=== PATIENT | female | born 1945 | race Caucasian/White ===

== ENCOUNTER 2023-03-09 11:12 | Outpatient (OUT) | payer MEDICARE, SELFPAY ==
[2023-03-09 14:26] LABS: Estimated Average Glucose 203 mg/dL; Glycohemoglobin A1C 8.7 % (4.5-6.2)
== END 2023-03-09 11:13 ==
LOC: LAB 11:16
PROVIDERS: PCP Family Medicine; Visit Provider Family Medicine
DX: E11.65 Type 2 diabetes mellitus with hyperglycemia (principal)
CPT/HCPCS: 36415; 83036

== ENCOUNTER 2024-06-08 11:36 | Outpatient (OUT) | payer MEDICARE, SELFPAY ==
[2024-06-08 12:17] LABS: Estimated Average Glucose 194 mg/dL; Glycohemoglobin A1C 8.4 % (4.5-6.2)
== END 2024-06-08 11:37 | disposition home or self-care (01) ==
PROVIDERS: PCP Family Medicine; Visit Provider Family Medicine
DX: E11.65 Type 2 diabetes mellitus with hyperglycemia (principal)
CPT/HCPCS: 36415; 83036

== ENCOUNTER 2024-09-05 11:22 | Outpatient (OUT) | payer MEDICARE, SELFPAY ==
--- OUTSIDE RECORDS SUMMARY | 2024-09-05 11:30 | XMS_ITS | CCD ---
Author Organization [facility] Care Team Providers Care Hoist Cylinder Loader Name Role Phone YANNI, DR EUGENIE Concepcion Admitting Unavailable NADERER, DR EUGENIE Concepcion Attending Unavailable NADERER, DR EUGENIE Concepcion Primary Care Unavailable NADERER, DR EUGENIE Concepcion Consulting Unavailable NADERER, DR EUGENIE Concepcion Admitting Unavailable NADERER, DR EUGENIE Concepcion Attending Unavailable NADERER, DR EUGENIE Concepcion Primary Care Unavailable NADERER, DR EUGENIE Concepcion Consulting Unavailable NADERER, EUGENIE Attending Unavailable NADERER, EUGENIE Attending Unavailable NADERER, EUGENIE Attending Unavailable Allergies Allergy Classification Reported Allergen(s) Allergy Type Date of Onset Reaction(s) Facility (1 source) Angiotensin Converting Enzyme (Lanre) Inhibitors Drug allergy (disorder) 07-04-2014 [facility] Repository Problems Problem Classification Problem Date Documented Da te Episodic/Chronic Chronic kidney disease (1 source) Chronic kidney disease; Translations: [CHRONIC KIDNEY DISEASE STAGE 3A] Onset: 08-20-2022 Diabetes mellitus with complications (6 sources) Type 2 diabetes mellitus with hyperglycemia; Translations: [Type 2 diabetes mellitus with diabetic chronic kidney disease] Onset: 02-17-2022 Chronic Disorders of lipid metabolism (1 source) Hyperlipidemia, unspecified; Translations: [HYPERLIPIDEMIA UNSPECIFIED] Onset: 08-20-2022 Chronic Malaise and fatigue (1 source) Other fatigue; Translations: [OTHER FATIGUE] Onset: 08-20-2022 Episodic Other aftercare (4 sources) Other long term care administrator (current) drug therapy; Translations: [OTH CHANNEL TURNER CURRENT DRUG THERAPY] Onset: 08-17-2022 Episodic Results Test Name Value Interpretation Reference Range Facil ity CBC AUTO DIFFon 08-17-2022 BASO # 0.1 103/ul Normal 0.0-0.1 [facility] Comment on above: Performed By: #### C BC #### [facility] [address] [place] [address] Dr. Vianney Monaco Basophils/100 WBC (Bld) 0.9 % Normal 0.2-2.0 [facility] Comment on above: Performed By: #### C BC #### [facility] [address] [place] [address] Dr. Vianney Monaco EO # 0.2 103/ul Normal 0.0-0.7 [facility] Comment on above: Performed By: #### C BC #### [facility] [address] [place] [address] Dr. Vianney Monaco Eosinophils/100 WBC (Bld) 3.1 % Normal 0.9-7.0 [facility] Comment on above: Performed By: #### C BC #### [facility] [address] [place] [address] Dr. Vianney Monaco Erythrocyte distribution width (RBC) [Ratio] 13.2 % Normal 11.0-15.0 [facility] Comment on above: Performed By: #### C BC #### [facility] [address] [place] [address] Dr. Vianney Monaco Hematocrit (Bld) [Volume fraction] 44.3 % Normal 36.0-48.0 [facility] Comment on above: Performed By: #### C BC #### [facility] [address] [place] [address] Dr. Vianney Monaco Hemoglobin (Bld) [Mass/Vol] 15.0 g/dL Normal 12.0-16.0 [facility] Comment on above: Performed By: #### C BC #### [facility] [address] [place] [address] Dr. Vianney Monaco IG # 0.02 10e3/ul Normal 0.00-0.03 [facility] Comment on above: Performed By: #### C BC #### [facility] [address] [place] [address] Dr. Vianney Monaco IG % 0.4 % Normal 0.0-0.5 [facility] Comment on above: Performed By: #### C BC #### [facility] [address] [place] [address] Dr. Vianney Monaco LYMPH # 1.6 103/ul Normal 1.2-3.8 [facility] Comment on above: Performed By: #### C BC #### [facility] [address] [place] [address] Dr. Vianney Monaco Lymphocytes/100 WBC (Bld) 28.2 % Normal 20.5-60.0 [facility] Comment on above: Performed By: #### C BC #### [facility] [address] [place] [address] Dr. Vianney Monaco MANUAL DIFF REQ NO Normal [facility] Comment on above: Performed By: #### C BC #### [facility] [address] [place] [address] Dr. Vianney Monaco MCH (RBC) [Entitic mass] 33.6 pg Normal 26.7-34.0 [facility] Comment on above: Performed By: #### C BC #### [facility] [address] [place] [address] Dr. Vianney Monaco MCHC (RBC) [Mass/Vol] 33.9 g/dL Normal 29.9-35.2 [facility] Comment on above: Performed By: #### C BC #### [facility] [address] [place] [address] Dr. Vianney Monaco MCV (RBC) [Entitic vol] 99.3 fL Critically high 81.0-99.0 [facility] Comment on above: Performed By: #### C BC #### [facility] [address] [place] [address] Dr. Vianney Monaco MONO # 0.4 103/ul Normal 0.3-0.8 [facility] Comment on above: Performed By: #### C BC #### [facility] [address] [place] [address] Dr. Vianney Monaco Monocytes/100 WBC (Bld) 7.6 % Normal 1.7-12.0 [facility] Comment on above: Performed By: #### C BC #### [facility] [address] [place] [address] Dr. Vianney Monaco NEUT # 3.3 103/ul Normal 1.4-6.5 [facility] Comment on above: Performed By: #### C BC #### [facility] [address] [address] [address] Vianney Monaco Neutrophils/100 WBC (Bld) 59.8 % Normal 43.0-75.0 [facility] Comment on above: Performed By: #### C BC #### [facility] [address] [address] [address] Vianney Monaco Platelet mean volume (Bld) [Entitic vol] 10.4 fL Normal 9.5-13.5 [facility] Comment on above: Performed By: #### C BC #### [facility] [address] [address] [address] Vianney Monaco PLT 198 103/ul Normal 150-450 [facility] Comment on above: Performed By: #### C BC #### [facility] [address] [place] [address] Dr. Vianney Monaco RBC 4.46 106/ul Normal 4.20-5.40 [facility] Comment on above: Performed By: #### C BC #### [facility] [address] [address] [address] Vianney Monaco WBC 5.5 103/ul Normal 4.0-11.0 [facility] Comment on above: Performed By: #### C BC #### [facility] [address] [place] [address] Dr. Vianney Monaco GLYCOHEMOGLOBIN A1Con 2021 ADA RECOMMENDATION SEE BELOW Normal [facility] Comment on above: Result Comment: ADA RECOMMENDED LIMIT 4.0 - 6.0 ADA THERAPEUTIC TARGET < 7.0 ACTION SUGGESTED > 7.0 Performed By: #### A 1C #### [facility] [address] [place] [address] Dr. Vianney Monaco Glucose [Mass/Vol] 189 mg/dL Normal [facility] Comment on above: Performed By: #### A 1C #### [facility] [address] [place] [address] Dr. Vianney Monaco HbA1c (Bld) [Mass fraction] 8.2 % Critically high 4.5-6.2 [facility] Comment on above: Performed By: #### A 1C #### [facility] [address] [address] [address] Vianney Monaco LIPID PROFILEon 08-17-2022 CHOL-HDL RATIO NORM SEE BELOW Normal [facility] Comment on above: Result Comment: 3.3 - 4.4 LOW RISK 4.4 - 7.1 AVERAGE RISK 7.1 - 11.0 MODERATE RISK >11.0 HIGH RISK Performed By: #### B MP, TSH, LIPID, LIVER #### [facility] [address] [address] [address] Vianney Monaco Cholesterol [Mass/Vol] 242 mg/dL Critically high <=200 [facility] Comment on above: Performed By: #### B MP, TSH, LIPID, LIVER #### [facility] [address] [address] [address] Vianney Monaco Cholesterol in HDL [Mass/Vol] 47 mg/dL Normal 40-60 [facility] Comment on above: Performed By: #### B MP, TSH, LIPID, LIVER #### [facility] [address] [address] [address] Vianney Monaco Cholesterol in LDL [Mass/Vol] 164.4 mg/dL Normal [facility] Comment on above: Performed By: #### B MP, TSH, LIPID, LIVER #### [facility] [address] [address] [address] Vianney Monaco Cholesterol.total/Cho lesterol in HDL [Mass ratio] 5.1 {ratio} Normal [facility] Comment on above: Performed By: #### B MP, TSH, LIPID, LIVER #### [facility] [address] [address] [address] Vianney Monaco HDL NORMAL > or = 60 mg/dl - LOW CARDIOVASCULAR RISK <40 mg/dl - HIGH CARDIOVASCULAR RISK Normal [facility] Comment on above: Performed By: #### B MP, TSH, LIPID, LIVER #### [facility] [address] [address] [address] Vianney Monaco LDL CALC NORMAL SEE BELOW Normal [facility] Comment on above: Result Comment: <100 mg/dl OPTIMAL 100 - 129 mg/dl NEAR OR ABOVE OPTIMAL 130 - 159 mg/dl BORDERLINE HIGH 160 - 189 mg/dl HIGH >190 mg/dl VERY HIGH Performed By: #### B MP, TSH, LIPID, LIVER #### [facility] [address] [address] [address] Vianney Monaco Triglyceride [Mass/Vol] 153 mg/dL Critically high <=150 [facility] Comment on above: Performed By: #### B MP, TSH, LIPID, LIVER #### [facility] [address] [address] [address] Vianney Monaco VLDL CALC 30.6 mg/dL Normal [facility] Comment on above: Performed By: #### B MP, TSH, LIPID, LIVER #### [facility] [address] [address] [address] Vianney Monaco LIVER PROFILEon 08-17-2022 Albumin [Mass/Vol] 4.0 g/dL Normal 3.4-5.0 [facility] Comment on above: Performed By: #### B MP, TSH, LIPID, LIVER #### [facility] [address] [address] [address] Vianney Monaco Albumin/Globulin [Mass ratio] 1.0 {ratio} Normal [facility] Comment on above: Performed By: #### B MP, TSH, LIPID, LIVER #### [facility] [address] [address] [address] Vianney Monaco ALP [Catalytic activity/Vol] 62 U/L Normal 46-116 [facility] Comment on above: Performed By: #### B MP, TSH, LIPID, LIVER #### [facility] [address] [address] [address] Vianney Monaco ALT [Catalytic activity/Vol] 15 U/L Normal 14-59 [facility] Comment on above: Performed By: #### B MP, TSH, LIPID, LIVER #### [facility] [address] [address] [address] Vianney Monaco AST [Catalytic activity/Vol] 16 U/L Normal 15-37 [facility] Comment on above: Performed By: #### B MP, TSH, LIPID, LIVER #### [facility] [address] [place] [address] Dr. Vianney Monaco BILI, CONJUGATED 0.1 mg/dL Normal 0.0-0.2 [facility] Comment on above: Performed By: #### B MP, TSH, LIPID, LIVER #### [facility] [address] [place] [address] Dr. Vianney Monaco Bilirubin [Mass/Vol] 0.6 mg/dL Normal 0.2-1.0 [facility] Comment on above: Performed By: #### B MP, TSH, LIPID, LIVER #### [facility] [address] [place] [address] Dr. Vianney Monaco Globulin (S) [Mass/Vol] 4.0 g/dL Normal [facility] Comment on above: Performed By: #### B MP, TSH, LIPID, LIVER #### [facility] [address] [place] [address] Dr. Vianney Monaco Protein [Mass/Vol] 8.0 g/dL Normal 6.4-8.2 [facility] Comment on above: Performed By: #### B MP, TSH, LIPID, LIVER #### [facility] [address] [place] [address] Dr. Vianney Monaco MICROALBUMIN, RAND URon 08-04 mALB 1.7 mg/L Normal <=30.0 [facility] Comment on above: Performed By: #### M ALBR #### [facility] [address] [place] [address] Dr. Vianney Monaco PROF CHEM 8 (BAS METB)on Anion gap [Moles/Vol] 10.3 mmol/L Normal [facility] Comment on above: Performed By: #### B MP, TSH, LIPID, LIVER #### [facility] [address] [place] [address] Dr. Vianney Monaco Calcium [Mass/Vol] 9.5 mg/dL Normal 8.5-10.1 [facility] Comment on above: Performed By: #### B MP, TSH, LIPID, LIVER #### [facility] [address] [address] [address] Vianney Monaco Chloride [Moles/Vol] 102 mmol/L Normal 98-107 [facility] Comment on above: Performed By: #### B MP, TSH, LIPID, LIVER #### [facility] [address] [address] [address] Vianney Monaco CO2 [Moles/Vol] 29.1 mmol/L Normal 21.0-32.0 [facility] Comment on above: Performed By: #### B MP, TSH, LIPID, LIVER #### [facility] [address] [address] [address] Vianney Monaco Creatinine [Mass/Vol] 0.85 mg/dL Normal 0.55-1.02 [facility] Comment on above: Performed By: #### B MP, TSH, LIPID, LIVER #### [facility] [address] [address] [address] Vianney Monaco EGFR-AF ZIMBABWEAN >60 Normal >=60 [facility] Comment on above: Performed By: #### B MP, TSH, LIPID, LIVER #### [facility] [address] [address] [address] Vianney Monaco EGFR-NON AF ZIMBABWEAN >60 Normal >=60 [facility] Comment on above: Performed By: #### B MP, TSH, LIPID, LIVER #### [facility] [address] [address] [address] Vianney Monaco Glucose [Mass/Vol] 160 mg/dL Critically high 74-106 [facility] [place] Comment on above: Performed By: #### B MP, TSH, LIPID, LIVER #### [facility] [address] [address] [address] Vianney Monaco Potassium [Moles/Vol] 4.4 mmol/L Normal 3.5-5.1 [facility] Comment on above: Performed By: #### B MP, TSH, LIPID, LIVER #### [facility] [address] [address] [address] Vianney Monaco Sodium [Moles/Vol] 137 mmol/L Normal 136-145 [facility] [place] Comment on above: Performed By: #### B MP, TSH, LIPID, LIVER #### [facility] [address] [place] [address] Dr. Vianney Monaco Urea nitrogen [Mass/Vol] 12.0 mg/dL Normal 7.0-18.0 [facility] Comment on above: Performed By: #### B MP, TSH, LIPID, LIVER #### [facility] [address] [place] [address] Dr. Vianney Monaco Urea nitrogen/Creatinine [Mass ratio] 14.1 mg/mg Normal [facility] Comment on above: Performed By: #### B MP, TSH, LIPID, LIVER #### [facility] [address] [place] [address] Dr. Vianney Monaco TSHon 08-17-2022 TSH 1.810 uIU/mL Normal 0.358-3.740 [facility] Comment on above: Performed By: #### B MP, TSH, LIPID, LIVER #### [facility] [address] [place] [address] Dr. Vianney Monaco VITAMIN D 25 OHon 08-17-2022 VIT D 25-OH 31.8 ng/mL Normal [facility] Comment on above: Performed By: #### V ITAD #### [facility] [address] [place] [address] Dr. Vianney Monaco VIT D RANGES SEE BELOW Normal [facility] Comment on above: Result Comment: <20 ng/mL Vit D deficient 20 - <30 ng/mL Vit D insufficient 30 - 100 ng/mL Vit D sufficient >100 ng/mL Potential Toxicity Performed By: #### V ITAD #### [facility] [address] [place] [address] Dr. Vianney Monaco GLYCOHEMOGLOBIN A1Con 2021 ADA RECOMMENDATION SEE BELOW Normal [facility] Comment on above: Result Comment: ADA RECOMMENDED LIMIT 4.0 - 6.0 ADA THERAPEUTIC TARGET < 7.0 ACTION SUGGESTED > 7.0 Performed By: #### A 1C #### [facility] [address] [place] [address] Dr. Vianney Monaco Glucose [Mass/Vol] 203 mg/dL Normal [facility] Comment on above: Performed By: #### A 1C #### [facility] [address] [place], [place] [address] Dr. Vianney Monaco HbA1c (Bld) [Mass fraction] 8.7 % Critically high 4.5-6.2 [facility] Comment on above: Performed By: #### A 1C #### [facility] [address] [place], [place] [address] Dr. Vianney Monaco Encounters Encounter Date Encounter Type Care Provider Facility Start: 06-08-2024 End: 06-08-2024 ambulatory EUGENIE LIAO Not Available Start: 03-06-2024 End: 03-06-2024 ambulatory EUGENIE LIAO Not Available Start: 09-06-2023 End: 09-06-2023 ambulatory EUGENIE LIAO Not Available Start: 08-17-2022 End: 08-18-[address] EUGENIE LIAO Facility:[facility] Start: 02-17-2022 End: 02-18-[address] EUGENIE LIAO Facility:[facility] Payers Date Payer Category Payer Medicare [id number] 1959 Unknown [id number] 1945 Unknown [id number] 2.16.84 [id number] 1945 Unknown [id number] 2.16.84 [id number] 1945 Unknown [id number] 2.16.84 [id number] 1945 Unknown [id number] 2.16.84 [id number] 1945 Unknown [id number] Summary Purpose Family History No Family History Records FoundNo Family History Records Found Advance Directives No Advanced Directives Records FoundNo Advanced Directives Records Found Additional Source Comments INFORMATION SOURCE (unrecogn ized section and content) DATE CREATED AUTHOR 08/21/2022 [facility] pital DATE CREATED AUTHOR AUTHOR'S LEXIE BLACKBURN 06/10/2024 [facility] FOR RECORDS PERTAINING TO PATIENTS WHO ARE OR HAVE BEEN ENROLLED IN A CHEMICAL DEPENDENCY/SUBSTANCEABUSE PROGRAM, SOME INFORMATION MAY BE OMITTED. This clinical summary was aggregated from multiple sources. Caution should be exercised in using it in the provision of clinical care. This summary normalizes information from multiple sources, and as a consequence, information in this document may materially change the coding, format and clinical context of patient data. In addition, data may be omitted in some cases. CLINICAL DECISIONS SHOULD BE BASED ON THE PRIMARY CLINICAL RECORDS. [facility] [employer] provides no warranty or guarantee of the accuracy or completeness of information in this document.
--- NOTE | 2024-09-05 11:34 | XR_ITS ---
[place] [id number] Patient Name: JULIETA BEAR MRN: [id number] date: 1945 Sex: F Assigned Patient [facility] Current Patient Location: Accession/Order Number: [id number] Exam Date: 09/05/2024 11:40 Report Date: 09/06/2024 08:11 At the request of: EUGENIE LIAO Procedure: XR knee RT 2V PROCEDURE: XR knee RT 2V COMPARISON: None. HISTORY: Chronic pain of right knee, M25.561 FINDINGS: BONES:No acute fracture or dislocation. Moderate tricomponent minimal osteoarthropathy with marginal osteophyte formation. Mild medial joint space narrowing SOFT TISSUES:Negative. No visible soft tissue swelling. EFFUSION:Moderate moderate joint effusion OTHER: Extensive vascular calcifications XR/XR knee RT 2V IMPRESSION: Moderate osteoarthritis with joint effusion Electronically authenticated by: [place] SAM Date: 09/06/2024 08:11
== END 2024-09-05 11:23 | disposition home or self-care (01) ==
LOC: RAD 11:24
PROVIDERS: PCP Family Medicine; Visit Provider Family Medicine
DX: M25.561 Pain in right knee (principal); G89.29 Other chronic pain; M25.461 Effusion, right knee
CPT/HCPCS: 73560

== ENCOUNTER 2025-03-20 11:22 | Outpatient (OUT) | payer MEDICARE, SELFPAY ==
[2025-03-20 12:03] LABS: Estimated Average Glucose 214 mg/dL; Glycohemoglobin A1C 9.1 % (4.5-6.2)
== END 2025-03-20 11:23 | disposition home or self-care (01) ==
LOC: LAB 11:23
PROVIDERS: PCP Family Medicine; Visit Provider Family Medicine
DX: E11.65 Type 2 diabetes mellitus with hyperglycemia (principal)
CPT/HCPCS: 36415; 83036

== ENCOUNTER 2025-09-19 11:17 | Outpatient (OUT) | payer MEDICARE, SELFPAY ==
--- OUTSIDE RECORDS SUMMARY | 2025-09-19 05:59 | XMS_ITS | Continuity of Care Document ---
Author Organization [facility] Address [address] [place] [address] Phone Care Team Providers Care Boot Lace Cutter Machine Name Role Phone Stan Zhong MD Primary Care Provider Stan Zhong MD Attending Provider Care Teams Patient Care Team Team Status: Active Member Role/Relationship Status Dates Stan Zhong MD Primary Care Provider Active Patient Care Team Team Status: Inactive Member Role/Relationship Status Dates Stan Zhong MD Primary Care Provider Active S tart: September 19, 2025 End: September 19, 2025Mar SONALI Zhongttending ProviderActiveStart: September 19, 2025 End: September 19, 2025 Chief Complaint and Reason for Visit Reason for Visit Admit Date Controlled type 2 diabetes marianna seth with both eyes affected by proliferativ September 19, 2025 10:03am Medicare annual wellness visit, subseque nt September 19, 2025 10:03am Allergies, Adverse Reactions, Alerts Allergen Type Severity Reaction Last Updated Verified Status KRISHAN Inhibitors Allergy Unknown Cough September 19, 2025 10:24 am Yes Active Social History Smoking Status Status Start Date End Date Date of Observa tion Never smoked tobacco (finding) September 19, 2025 10:26am Observation Status Observation Response Date of Response Legal Sex Female (finding) [facility] 1945 Problems Active Problems Problem Diagnosis/Recorded Date Onset Date Stat Medicare annual wellness vis it, subsequent September 19, 2025 10:42am Unknown Active Primary osteoarthritis of both knees September 17 1:27pm Unknown Active Dyslipidemia September 17, 2025 1:27pm Unknown A ctive Varicose veins of both legs with edema September 17, 2025 1:29pm Unknown Active Statin declined September 17, 2025 1:28pm Unknown Active Encounter for long-term (cur rent) use of medications September 19, 2025 10:42am Unknown Active Type 2 diabetes mellitus wit h hyperglycemia, without long-term current use of insulin September 17, 2025 1:28pm Unknown Active GERD without esophagitis September 17, 2025 1:27pm Un known Active Stage 3a chronic kidney disease September 17, 2025 1: 28pm Unknown Active 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 Take before meals. UnknownLancets (Accu-Chek Softclix Lancets) miscActive0.Hczhs8419Prvlvlv 2024 11:00pmAs directedEmpagliflozin 25 mg dalgwxOdejibhjxqjg21ZBSFUozbaYgdbvbpr 2024 12:00amDecember 2024 10:25amMetformin 500 mg tablet extended release 24 ipYsdtzh143TOYEPnhyl dailyDe2024 12:00amTake 1 tablet (500 mg) by mouth in the morning and 1 tablet (500 mg) by mouth at noonComplies with drug therapySitagliptin 100 mg vctwlfPvpfid222TOFUVpbqjRogzxwka 2024 12:00amComplies with drug therapy Vital Signs Vital Reading Result Reference Range Collection Date/Time Height 66 [in_i] September 19, 2025 10:26ckOwrdui01.39 kgDe2024 10:24amBody Nrahoruupqb66.3 [degF]97.6-99.0[facility] 2024 10:24amHeart Rate84 /min 60-100December 17th, 2025 10:24amRespiratory rate20 /qrp62-81RhqxxbzdSeptember 19, 2025 10:24amOxygen saturation by Pulse ebyxfksx70 %95-100September 19, 2025 10:24am BP Kqdxmqwe473 mm[Hg]100-140September 19, 2025 10:24amBP Oltzyiqqo09 mm[Hg] 60-100De2024 10:24amBMI (Body Mass Index)24.7 kg/h1Hpittvgh2024 10:24am Advance Directives Advance Directive Response Recorded Date/ Time Advance Directives No June 4:39pm Insurance Providers Guarantor Montse Jamey Clinton Address [address] [facility] [id number] Info.Home Phone: Coverage Status Update:2025 Payer Group Member ID Coverage Type Subscriber Relationship to Subscriber Effective Date Expiration Date Medicare [id number] A Miller Id: [id number] [address] [facility] [address] Home Phone: Email: [email or web address] Claims [id number] A Miller Id: [id number] [address] [facility] [address] Home Phone: Email: [email or web address] Encounters Encounter Location(s) Arrival/Admit Date Discharge/Departure Date Discharge/Departure Disposition Provider(s) Departed Physician/ Provider Office Visit -[facility] Family Medicine Darryl September 19, 2025 10:03am September 19, 2025 10:56am Discharged to home care or self care (routine discharge) Stan Zhong MD Recent Diagnosis Onset Date Admit Date Controlled type 2 diabetes m ellitus with both eyes affected by proliferativ Unknown September 19, 2025 10:0 3am Medicare annual wellness visit, subsequent Unkno wn September 19, 2025 10:03am Assessments Diagnosis Onset Date Resolution Status Admit Date Controlled type 2 diabetes mellitus with both eyes affected by proliferativ acuteDece2024 10:03amMedicare annual wellness visit, subsequentacute September 19, 2025 10:03am Plan of Treatment Future Tests Future scheduled test information is unavailable Pending Tests Test Name Ordered Date Scheduled Date Comprehensive Metabolic Panel September 19 10:43am Future Visits Future appointment information is unavailable Future Procedures Procedure Name Ordered Date Scheduled Date A1C with Estimated Average Glu September 19 10:43am Complete Blood Count Auto DiffDeceer 2024 10:43amLipid PanelDephoenix [facility] 2024 10:43amMicroAlb Creat Ratio,UDhon[facility] 2024 10:43amThyroid Stimulating HormoneDeceer 2024 10:43am Future Medications Future medication information is unavailable Patient Instructions Patient instructions are unavailable
--- OUTSIDE RECORDS SUMMARY | 2025-09-19 11:21 | XMS_ITS | Clinical Summary ---
Author Organization [facility] Address [address] [place] [address] Care Team Providers Care Licensed Tax Consultant Name Role Phone Stan Zhong MD Primary Care Provider [phone] Stan Zhong MD Unavailable Allergies Active AllergyReactionsCriticalityNoted DateCommentsAce InhibitorsCough 09/03/2023 Medications MedicationSigDispense QuantityRefillsLast FilledStart DateEnd DateStatus glipiZIDE (Glucotrol) 10 MG tablet Indications:Type 2 diabetes mellitus with hyperglycemia, without long-term current use of insulin ([facility])Take 2 tablets (20 mg) by mouth in the morning and 2 tablets (20 mg) in the evening. Take before meals. 360 tablet 4Active Accu-Chek Softclix Lancets lancets Indications:Type 2 diabetes mellitus with hyperglycemia, without long-term current use of insulin ([facility])100 each by Other route Daily Use as instructed 100 each 4Active glucose blood (Accu-Chek Sonja Plus) test strip Indications:Type 2 diabetes mellitus with hyperglycemia, without long-term current use of insulin ([facility])1 each by Other route if needed (as needed) Use 1 strip daily. 50 each 805Active empagliflozin (Jardiance) 25 MG Indications:Type 2 diabetes mellitus with hyperglycemia, without long-term current use of insulin ([facility])Take 1 tablet (25 mg) by mouth Daily 30 tablet 5Active metFORMIN XR (Glucophage-XR) 500 MG 24 hr tablet Indications:Type 2 diabetes mellitus with hyperglycemia, without long-term current use of insulin ([facility])Take 1 tablet (500 mg) by mouth in the morning and at noon Do not crush, chew, or split. 180 tablet 3065Active SITagliptin (Januvia) 100 MG tablet Indications:Type 2 diabetes mellitus with hyperglycemia, without long-term current use of insulin (HCC)Take 1 tablet (100 mg) by mouth Daily 90 tablet 5Active Active Problems ProblemNoted DateDiagnosed DateMedicare annual wellness visit, subsequent 09/18/2024 Assessment & Plan (09/18/2024 12:24 PM EST): Due for labs. Discussed proper diet and regular aerobic exercise. Need aerobic exercise 5-6 days a week for 30 minutes at a time. Smaller portions and limit total calories. Tetanus every 10 years. Advised not to smoke. Primary osteoarthritis of both knees06/08/2024 Assessment & Plan (03/20/2025 11:04 AM EDT): Pain unchanged and start PT. Assessment & Plan (06/08/2024 11:15 AM EDT): Pain for years and possible OA. Check x-ray and start PT. Bilateral leg edema09/06/2023 Assessment & Plan (03/20/2025 11:04 AM EDT): Edema stable and continue compression. Elevate legs PRN. Assessment & Plan (06/08/2024 11:14 AM EDT): Edema stable and continue compression. Elevate legs PRN. Assessment & Plan (03/06/2024 10:31 AM EDT): Edema stable and continue compression. Elevate legs PRN. Elevated blood pressure reading in office without diagnosis of hypertension 09/06/2023hronic allergic rhinitis due to fwylut7309/06/2023 Assessment & Plan (03/06/2024 10:31 AM EDT): Symptoms tolerable without medication and monitor. Assessment & Plan (09/06/2023 10:36 AM EST): Symptoms stable and monitor. Dmydupazvcsc34/04/2023ERD without vbpxtjmgauq86/04/2023Stage 3a chronic kidney disease (CKD)09/06/2023Statin bmhjfxky14/04/2023Type 2 diabetes mellitus with hyperglycemia, without long-term current use of wycqjbq8309/06/2023 Assessment & Plan (03/20/2025 11:05 AM EDT): Reports BS elevated and side effects from metformin. Decrease dose and add jardiance. Due for A1C. Stick to ADA diet and limit carbs. Assessment & Plan (06/08/2024 11:15 AM EDT): Reports BS improved and due for A1C. Stick to ADA diet and limit carbs. Assessment & Plan (03/06/2024 10:32 AM EDT): BS remains elevated and add januvia. Continue metformin and glipizide. Stick to ADA diet and limit carbs. Assessment & Plan (09/06/2023 10:35 AM EST): BS elevated and previously did not tolerate higher dose metformin. Start Januvia after insurance changes in October. Stick to ADA diet and limit carbs. 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 Continue compression. Encounter for long-term (current) use of nyfhjpaqevh81/04/2023 Family History Medical HistoryRelationNameCommentsDementiaFatherHeart diseaseMother HyperthyroidismMothervaricose veinsMotherBreast cancerSisterRelationNameStatus CommentsFatherMotherSister Social History Tobacco UseTypesPacks/DayYears UsedDateSmoking Tobacco: NeverSmokeless Tobacco: Never Tobacco Cessation:Counseling Given: Not Answered Alcohol UseStandard Drinks/WeekCommentsNever0 (1 standard drink = 0.6 oz pure alcohol)CommentsUnknownSex and Gender InformationValueDate RecordedSex Assigned at BirthNot on fileLegal KlyTiclmq55/05/2023 12:44 PM EDTGender IdentityNot on fileSexual OrientationNot on file Last Filed Vital Signs Vital SignReadingTime TakenCommentsBlood Pbvfkaoo403/70003/20/2025 10:12 AM EDT Obvyr654703/20/2025 10:12 AM KFRQcsecqetsnd36.2 ??C (97.1 ??F)03/20/2025 10:12 AM EDTRespiratory Zvig042703/20/2025 10:12 AM EDTOxygen Iubalhnulr96%03/20/2025 10:12 AM EDTInhaled Oxygen Concentration--Rkjifd02.3 kg (155 lb)03/20/2025 10:12 AM RHRHccwxz097.6 cm (5' 6 )03/20/2025 10:12 AM EDTBody Mass Index25.02003/20/2025 10:12 AM EDT Plan of Treatment Health MaintenanceDue DateLast DoneCommentsPneumococcal Vaccine: 65+ Years (1 of 2 - PCV)1964Diabetes: Hemoglobin A1C, 06/08/2024, 3COVID-19 Vaccine ( season), 07/19/2023, 07/01/2022, Additional history existsInfluenza Vaccine (#1)/, 07/01/2022, 06/16/2021, Additional history existsMedicare Annual Wellness (AWV) /4Diabetes: Urine Protein Xaiiwhxrl83, 3Diabetes: Retinopathy Upxgjjntx96/08/2025, 09/06/2024, 03/10/2024, Additional history exists Procedures Procedure NamePriorityDate/TimeAssociated DiagnosisCommentsHEMOGLOBIN Y1SYgjksqo 10/02/2024 10:17 AM EST Type 2 diabetes mellitus with hyperglycemia, without long-term current use of insulin (HCC) MICROALBUMIN / CREATININE URINE YHZVBUxuhrbx85/20/2024 10:04 AM EST Type 2 diabetes mellitus with hyperglycemia, without long-term current use of insulin (HCC) DIABETIC RETINOPATHY SCREENING - OU - BOTH FVIMHmbfscy97/04/2024 12:44 PM EST from Last 3 Months or Most Recently Relevant to Health Maintenance Results * (ABNORMAL) Hemoglobin A1c (10/02/2024 10:17 AM EST)ComponentValueRef RangeTest MethodAnalysis TimePerformed AtPathologist SignatureHemoglobin A1C9.0(H)<5.7 % of total HgbQUESTComment: For someone without known diabetes, a hemoglobin A1c value of 6.5% or greater indicates that they may have diabetes and this should be confirmed with a follow-up test. For someone with known diabetes, a value <7% indicates that their diabetes is well controlled and a value greater than or equal to 7% indicates suboptimal control. A1c targets should be individualized based on duration of diabetes, age, comorbid conditions, and other considerations. Currently, no consensus exists regarding use of hemoglobin A1c for diagnosis of diabetes for children. Specimen (Source)Anatomical Location / LateralityCollection Method / Volume Collection TimeReceived TimeBloodVenous blood specimen / Vnqtlba3710/02/2024 10:17 AM EST10/02/2024 10:17 AM EST Narrative [facility] - 10/03/2024 7:36 AM EST SPLIT 09/22/2024 FROM [id number] FASTING:YES FASTING: YES Resulting Agency Comment Performing Organization Information ?Site ID: QPT ?Name: [employer] [facility] ?Address: [address] [place] [address], [address] [place] [phone] ?Director: Matheus Bernardo MD Authorizing ProviderResult TypeResult StatusMarc Trevin OLSONLAB BLOOD ORDERABLES Final ResultPerforming OrganizationAddressCity/State/ZIP CodePhone Number [facility] * Microalbumin / creatinine, urine ratio (09/22/2024 10:04 AM EST)ComponentValue Ref RangeTest MethodAnalysis TimePerformed AtPathologist SignatureCREATININE, RANDOM VNPNG0686 - 275 mg/dLQUESTALBUMIN, URINE0.3See Note: mg/dLQUESTComment: Reference Range: Reference Range Not established ALBUMIN/CREATININE RATIO, RANDOM URINE8<30 mg/g creatQUESTComment: The ADA defines abnormalities in albumin excretion as follows: Albuminuria Category ?Result (mg/g creatinine) Normal to Mildly increased <30 Moderately increased ? 30-299 Severely increased > OR = 300 The ADA recommends that at least two of three specimens collected within a 3-6 month period be abnormal before considering a patient to be within a diagnostic category. Specimen (Source)Anatomical Location / LateralityCollection Method / Volume Collection TimeReceived TimeUrineUrine specimen obtained by clean catch procedure / Ijfxhgv0609/22/2024 10:04 AM EST09/22/2024 10:05 AM EST Narrative [facility] - 09/23/2024 10:42 AM EST FASTING:YES DIFFICULT DRAW. PATIENT ADVISED TO RETURN FOR COLLECTION. FASTING: YES Resulting Agency Comment Performing Organization Information ?Site ID: QPT ?Name: [employer] [facility] ?Address: [address] [place] [address], [address] [place] [phone] ?Director: Matheus Bernardo MD Authorizing ProviderResult TypeResult StatusStan VELEZ URINE ORDERABLES Final ResultPerforming OrganizationAddressCity/State/ZIP CodePhone Number [facility] * Diabetic Retinopathy Screening - OU - Both Eyes (09/06/2024 12:44 PM EST) Anatomical RegionLateralityModalityHeadOther Narrative Authorizing ProviderResult TypeResult StatusStan Zhong MDOPHTH PHOTOGRAPHY Final Result from Last 3 Months or Most Recently Relevant to Health Maintenance Insurance Care Teams Team MemberRelationshipSpecialtyStart DateEnd Date Stan Zhong MD [facility] - [facility] Stan Zhong MD [address] [place] [address] PCP - ACO [facility]11/10/24
[2025-09-19 11:42] LABS: Hematocrit 44.4 % (36.0-48.0); Hemoglobin 15.0 g/dL (12.0-16.0); Immature Granulocytes Abs Auto 0.03 10^3/uL (0.00-0.03); Immature Granulocytes Pct Auto 0.5 % (0.0-0.5); Lymphocytes Absolute Auto 1.5 10^3/uL (1.2-3.8); Mean Corpuscular HGB Conc 33.8 g/dL (29.9-35.2); Mean Corpuscular Hemoglobin 32.3 pg (26.7-34.0); Mean Corpuscular Volume 95.5 fL (81.0-99.0); Platelet Count 186 10^3/uL (150-450); Red Blood Count 4.65 10^6/uL (4.20-5.40); White Blood Count 6.7 10^3/uL (4.0-11.0)
[2025-09-19 12:32] LABS: Alanine Aminotransferase 16 U/L (14-59); Albumin Globulin Ratio 1.2; Albumin Level 3.9 g/dL (3.4-5.0); Alkaline Phosphatase 64 U/L (46-116); Anion Gap 6.4; Aspartate Amino Transferase 11 U/L (15-37); Blood Urea Nitrogen 14.0 mg/dL (7.0-18.0); Calcium 9.1 mg/dL (8.5-10.1); Carbon Dioxide 30.9 mmol/L (21.0-32.0); Chloride 103 mmol/L (98-107); Cholesterol 230 mg/dL (<=200); Estimated GFR (African America >60 (>=60 mL/min/1.73m^2); Estimated GFR (Non-African Ame 59 (>=60 mL/min/1.73m^2); Globulin 3.3 g/dL; Glucose 220 mg/dL (74-106); HDL Cholesterol 40 mg/dL (40-60); Potassium 4.3 mmol/L (3.5-5.1); Sodium 136 mmol/L (136-145); Thyroid Stimulating Hormone 1.753 uIU/mL (0.358-3.740); Total Protein 7.2 g/dL (6.4-8.2); Triglycerides 148 mg/dL (<=150); VLDL CHOLESTEROL 29.6 mg/dL
== END 2025-09-19 11:18 | disposition home or self-care (01) ==
LOC: LAB 11:19
PROVIDERS: PCP Family Medicine; Visit Provider Family Medicine
DX: E11.3513 Type 2 diabetes mellitus with proliferative diabetic retinopathy with macular edema, bilateral (principal); Z79.899 Other long term (current) drug therapy; E78.5 Hyperlipidemia, unspecified; R53.83 Other fatigue; E11.65 Type 2 diabetes mellitus with hyperglycemia
CPT/HCPCS: 36415; 80053; 80061; 82043; 82570; 83036; 84443; 85025